=== PATIENT | male | born 1950 | race Caucasian/White ===

== ENCOUNTER 2020-07-04 03:25 | Observation (INO) | payer MEDICARE ==
[2020-07-04] VITALS (21 sets, daily range): BP systolic 73–106; BP diastolic 37–59
[~2020-07-04] VITALS: Ht 180.3 cm; Wt 66.9 kg
[~2020-07-04 03:25] MED LIST: ASPIRIN81 MG PO; ATORVASTATIN CA80 MG PO; COLCHICINE0.6 M2 PO; COREG12.5 MG PO; DEPO-MEDROL40 MG/ML IJ; ELIQUIS5 MG PO; FLEXERIL PO; FLUOXETINE20 MG PO; LORAZEPAM0.5 MG PO; PLAVIX75 MG PO; PRILOSEC20 MG PO; PROBENECID500 MG PO; QUETIAPINE FUM300 MG PO; SIMVASTATIN80 MG PO; SPIRONOLACT25 MG PO; ZESTRIL/PRINIV2.5 MG PO
[2020-07-04 05:39] LABS: ALBUMIN 4.5 g/dL (3.2-5.0); ALKALINE PHOSPHATASE 76 u/l (38-126); AMYLASE 77 u/l (30-110); ANION GAP 17 (6-22 (CALC)); BILIRUBIN, TOTAL 0.8 mg/dL (0.0-1.4); BUN 23 mg/dL (8-23); BUN/CREATININE RATIO 9 (12-20 (CALC)); CARBON DIOXIDE 22 mmol/l (22-30); CHLORIDE 98 mmol/l (95-108); CREATININE 2.5 mg/dL (0.7-1.3); ETHYL ALCOHOL 0 mg/dl (0-30); GFR 26 ML/MIN (>=60 (CALC)); GFR FOR AFR.AMER. 31 ML/MIN (>=60 (CALC)); LIPASE 87 u/l (23-300); POTASSIUM 4.7 mmol/l (3.5-5.1); SGOT/AST 118 u/l (19-48); SODIUM 132 mmol/l (137-146); TOTAL PROTEIN 7.2 g/dL (6.3-8.2)
[2020-07-04 05:59] LABS: RED BLOOD COUNT 4.47 mill/uL (4.70-6.10)
[2020-07-04 06:00] LABS: HEMATOCRIT 38.9 % (39.0-50.0); HEMOGLOBIN 13.8 g/dl (14.0-18.0); MEAN CORPUSCULAR HGB 30.9 pG CALC (26.0-32.0); MEAN CORPUSCULAR HGB CONC 35.5 g/dL CAL (32.0-36.0); RED CELL DISTRI WIDTH 11.9 % (11.5-15.5)
[2020-07-04 06:01] LABS: NEUT# 9.51 thou/uL (1.82-7.42)
--- NOTE | 2020-07-04 06:24 | NUR ---
SECOND LACTIC AND BLOOD CULTURES DRAWN AND SENT TO LAB BY MYSELF. COVID AND FLU SWABS ALSO SENT TO LAB
--- NOTE | 2020-07-04 06:44 | NUR ---
Reassessment of patient completed. No distress noted.
--- NOTE | 2020-07-04 06:51 | NUR ---
RECIEVED REPORT FROM ISIAH
--- NOTE | 2020-07-04 07:45 | NUR ---
PT TRANSPORTED TO ICU STABLE AND IN NO DISTRESS VIA STRETCHER. CARE ASSUMED TO HAYDEE. BREAKFAST TRAY TAKEN TO ICU.
--- NOTE | 2020-07-04 08:15 | NUR ---
AND JAVIER AT BEDSIDE. PT ARRIVED TO FLOOR IN SOILED CLOTHES BLUE SHIRT AND UNDERPANTS. RECIEVED FROM ER. VITALS COLLECTED AND ASSESSMENT PERFORMED. BREAKFAST OFFERED TO PATIENT. BED IN LOWEST POSITION AND CALL LOPEZ IN PLACE.
[2020-07-04] MEDS ORDERED: CRESTOR40 MG PO (09:52)
--- NOTE | 2020-07-04 09:52 | NUR ---
CONTACTED NEXT OF [facility]IN, UNABLE TO VERIFY MEDS. REPORTS PT "HAS A BAD HEART AND HAS BEEN TAKING MEDS FOR 30 YEARS" ALSO REPORTS A DEPRESSION MED BUT CANNOT NAME IT. VERIFIED WITH [facility], FILLED CRESTOR 40MG RECENTLY. UPDATED MED LIST
--- NOTE | 2020-07-04 09:54 | NUR ---
NEXT OF [facility]TER[facility] PHONE NUMBER [phone]
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
[2020-07-04 14:14] LABS: URINE BLOOD DIPSTICK LARGE (NEGATIVE); URINE CLARITY SL CLOUDY; URINE GLUCOSE - DIPSTICK NEGATIVE (NEGATIVE); URINE KETONE TRACE mg/dL (NEGATIVE); URINE LEUK ESTERASE NEGATIVE (Negative); URINE NITRITE - DIPSTICK NEGATIVE (Negative); URINE PH 5.5 (4.5-8.0); URINE PROTEIN - DIPSTICK 30 mg/dL (NEG-TRACE); URINE SPECIFIC GRAVITY >=1.030; URINE UROBILINOGEN - DIPSTICK 0.2 E.U./dL (0.2)
[2020-07-04 14:19] LABS: URINE BILIRUBIN - DIPSTICK NEGATIVE (NEGATIVE); URINE COLOR DK. YELLOW
[2020-07-04 14:37] LABS: URINE AMORPH SEDIMENT MANY hpf (NONE-FER)
--- NOTE | 2020-07-04 17:04 | NUR ---
PATIENT AGREEABLE MOST OF THE DAY. PATIENT RESTFUL AND FEELING BETTER. BP DOCUMENTED IN VITALS. PATIENT HAS BEEN STBLE, BED IN LOWEST POSITION AND CALL LOPEZ IN REACH
--- NOTE | 2020-07-04 19:40 | NUR ---
ASSESSMENT COMPLETED; NO DISTRESS NOTED. DENIES NEEDS/PAIN. A/A/OX4. RE-EDUCATED CLIENT ADMINISTRATOR LIGHT USE AND SAFETY PRECAUTIONS WELL POC; VEBERLAIZES UNDERSTANDING; BED ALARM ON. IV SITE PATENT AND ORDERED IVF INFUSING WELL. SIDE RAILS PADDED FOR SEIZURE PRECAUTIONS. PO FLUIDS OFFERED. BRUISING NOTED TO BLE; ENCOURAGED TO CALL FOR ANY NEEDS. CALL LIGHT IS IN REACH. WILL CONTINUE TO MONITOR.
--- NOTE | 2020-07-04 23:32 | NUR ---
RESTING IN BED WITH EYES CLOSED; RESP. EVEN AND UNLABORED. NO DISTRESS NOTED. CALL LIGHT IS IN REACH.
[2020-07-05] VITALS: BP 97/55
[2020-07-05 03:00] VITALS: BP 88/50
--- NOTE | 2020-07-05 04:05 | NUR ---
PT. RESTING IN BED WITH EYES CLOSED; RESP. EVEN AND UNLABORED. CALL LIGHT IS IN REACH. WILL CONTINUE TO MONTIOR. BED ALARM ON.
[2020-07-05 04:30] VITALS: BP 96/51
--- NOTE | 2020-07-05 06:45 | NUR ---
RECIEVED REPORT FROM BROOKLYNN HENNING. ASSUMED PT CARE.
[2020-07-05 08:00] VITALS: BP 107/58
--- NOTE | 2020-07-05 08:00 | NUR ---
PT A&OX4, ABLE TO MAKE NEEDS KNOWN. SITTING UP IN BED. SR W/OCCAS. PVC'S. PT DENIES CP, SOB OR DISTRESS AT THIS TIME. RESPIRATIONS EVEN/UNLABORED, SA02@96% RA. LS CLEAR/DIMINISHED. ABDOMEN SOFT, NON-TENDER, LBM 11-30-20. 20G@RAC INFUSING NS @125ML/HR, NO S/S OF INFILTRATION OR INFECTION NOTED AT SITE. PT REMAINS AFEBRILE. CALL LIGHT IN REACH, WILL MONITOR.
--- NOTE | 2020-07-05 08:30 | NUR ---
DR. MCKEON AND JOHANN CHONG AT BEDSIDE FOR ASSESSMENT AND TO DISCUSS PLAN OF CARE, NEW ORDERS RECIEVED.
--- NOTE | 2020-07-05 08:45 | NUR ---
PT ASSISTED TO BSC FOR BM.
--- NOTE | 2020-07-05 09:00 | NUR ---
LAB AT BEDSIDE FOR BLOOD DRAW.
[2020-07-05 09:06] LABS: HEMATOCRIT 35.6 % (39.0-50.0); HEMOGLOBIN 12.2 g/dl (14.0-18.0); MEAN CELL VOLUME 89.4 fL CALC (80.0-100.0); MEAN CORPUSCULAR HGB 30.7 pG CALC (26.0-32.0); MEAN CORPUSCULAR HGB CONC 34.3 g/dL CAL (32.0-36.0); RED BLOOD COUNT 3.98 mill/uL (4.70-6.10); RED CELL DISTRI WIDTH 12.2 % (11.5-15.5)
[2020-07-05 09:33] LABS: BILIRUBIN, TOTAL 0.6 mg/dL (0.0-1.4); POTASSIUM 3.8 mmol/l (3.5-5.1); TOTAL PROTEIN 5.9 g/dL (6.3-8.2)
[2020-07-05 09:57] LABS: ALBUMIN 3.3 g/dL (3.2-5.0); CREATININE 1.4 mg/dL (0.7-1.3)
--- NOTE | 2020-07-05 10:25 | NUR ---
LAB RESULTS BACK, JOHANN CHONG NOTIFIED.
[2020-07-05] MEDS ORDERED: ZPAK PO (10:42)
--- NOTE | 2020-07-05 11:00 | NUR ---
IV site discontinued, cath intact. No edema , no redness, voices no discomfort.
--- NOTE | 2020-07-05 11:25 | NUR ---
Discharge instructions given. Patient verbalizes understanding of same. Discharged in stable condition via Wheelchair to Home with *Other. All belongings sent with pt. PAPER PRESCRIPTION SENT HOME WITH PT. KRISTINE CALLED AND PAID FOR BY [facility].
== END 2020-07-05 11:25 | disposition home or self-care (01) ==
LOC: ED 03:40 → ED-I 06:18 → ED 06:31 → ICU 06:32
PROVIDERS: ADMIT Internal Medicine; ATTEND Internal Medicine
DX: G93.40 Encephalopathy, unspecified (principal); J18.9 Pneumonia, unspecified organism; N17.9 Acute kidney failure, unspecified; I95.9 Hypotension, unspecified; F10.20 Alcohol dependence, uncomplicated; F17.210 Nicotine dependence, cigarettes, uncomplicated; Z20.828 Contact with and (suspected) exposure to other viral communicable diseases
CPT/HCPCS: J2060